=== PATIENT | female | born 1965 ===

== ENCOUNTER 2018-04-01 12:54 | Emergency (ER) | payer OTHER ==
[2018-04-01] MEDS ORDERED: ALBUTEROL/IPRATROPIUM 1 VIAL SOL ONE (13:14)
[2018-04-01 13:19] VITALS: TEMP 98.7
[2018-04-01 13:27] LABS: BASOPHILS % (AUTO) 0 % (0-3); EOSINOPHILS % (AUTO) 0 % (0-9); HEMATOCRIT 37 % (35-47); HEMOGLOBIN 12.7 gm/dl (12.0-15.5); LYMPHOCYTES % (AUTO) 8.27 % (10-50); MEAN CORPUSCULAR HEMOGLOBIN 27.3 pg (27.0-32.0); MONOCYTES % (AUTO) 4.6 % (0-12); NEUTROPHILS % (AUTO) 86.9 % (37-80)
[2018-04-01 13:31] LABS: MEAN CORPUSCULAR VOLUME 80 fL (81-99)
[2018-04-01 13:32] LABS: LACTIC ACID 1.2 mMol/L (0.0-2.0)
[2018-04-01] MEDS ORDERED: ALBUTEROL/IPRATROPIUM 1 VIAL SOL INH ONE (13:37)
[2018-04-01 13:38] VITALS: RESP 20
[2018-04-01 13:39] LABS: CALCIUM 8.5 mg/dl (8.5-10.1); CARBON DIOXIDE 26.2 mEq/L (21-32); CREATININE 0.92 mg/dl (0.60-1.00); POTASSIUM 3.4 mMol/L (3.5-5.1)
[2018-04-01] MEDS ORDERED: SOLUMEDROL 125 MG/2 ML 125 MG/2 ML PDS IM ONE (14:41)
[2018-04-01] MEDS ORDERED: POTASSIUM CHLORIDE 10 MEQ TER PO ONE (14:42)
[2018-04-01] MEDS ORDERED: SOLUMEDROL 125 MG/2 ML 125 MG/2 ML PDS ONE (14:57)
[2018-04-01] MEDS ORDERED: POTASSIUM CHLORIDE 10 MEQ TER ONE (14:57)
[2018-04-01] MEDS ORDERED: LEVOFLOXACIN 500 MG TAB PO ONE (15:21)
[2018-04-01] MEDS ORDERED: LEVOFLOXACIN 500 MG TAB ONE (15:21)
[2018-04-01 16:09] VITALS: BP 153/97; PULSE 74; O2SAT 94
== END 2018-04-01 15:45 | disposition home or self-care (01) ==
LOC: ED 12:54
DX: J20.9 Acute bronchitis, unspecified (principal); I10 Essential (primary) hypertension; R06.02 Shortness of breath; R00.0 Tachycardia, unspecified
CPT/HCPCS: 36415; 71046; 71260; 80048; 85025; 96372; 99284; J2930; Q9967; A9270-GY

== ENCOUNTER 2018-07-27 16:03 | Emergency (ER) | payer OTHER ==
[2018-07-27 18:22] VITALS: PULSE 81; RESP 20; TEMP 98.1; O2SAT 97
[2018-07-27 18:55] VITALS: BP 100/66
== END 2018-07-27 17:00 | disposition left against medical advice (07) ==
LOC: ED 16:03
DX: Z53.21 Procedure and treatment not carried out due to patient leaving prior to being seen by health care provider (principal)
CPT/HCPCS: 99282

== ENCOUNTER 2018-10-01 09:24 | Emergency (ER) | payer OTHER ==
[2018-10-01] MEDS ORDERED: SODIUM CHLORIDE 0.9% 1000 ML SOL IV SCH (10:00)
[2018-10-01] MEDS ORDERED: ONDANSETRON HCL 4 MG/2 ML SOL IV ONE (10:00)
[2018-10-01 10:13] LABS: HEMATOCRIT 24 % (35-47); HEMOGLOBIN 7.1 gm/dl (12.0-15.5); MEAN CORPUSCULAR HEMOGLOBIN 22.6 pg (27.0-32.0); MEAN CORPUSCULAR HGB CONC 29.7 gm/dl (32.0-36.0)
[2018-10-01] MEDS ORDERED: ONDANSETRON HCL 4 MG/2 ML SOL ONE (10:13)
[2018-10-01 10:19] LABS: MEAN CORPUSCULAR VOLUME 76 fL (81-99)
[2018-10-01 10:27] LABS: ALBUMIN 1.5 gm/dl (3.4-5.0); BILIRUBIN,TOTAL 0.8 mg/dl (0.2-1.0); CALCIUM 8.5 mg/dl (8.5-10.1); CARBON DIOXIDE 20.1 mEq/L (21-32); CREATININE 1.31 mg/dl (0.60-1.00); POTASSIUM 4.1 mMol/L (3.5-5.1); TOTAL PROTEIN 7.7 gm/dl (6.4-8.2)
[2018-10-01 10:36] LABS: BAND NEUTROPHILS % (MANUAL) 2 %; BASOPHILS % (MANUAL) 0 % (0-3); EOSINOPHILS % (MANUAL) 0 % (0-9); LYMPHOCYTES % (MANUAL) 2 % (10-50); MONOCYTES % (MANUAL) 2 % (0-12); NEUTROPHILS % (MANUAL) 94 % (37-80); POIKILOCYTOSIS SLIGHT AMT
[2018-10-01 10:37] LABS: ANISOCYTOSIS S; HYPOCHROMASIA SLIGHT AMT; OVALOCYTES PRESENT; TARGET CELLS PRESENT
[2018-10-01 11:52] LABS: INR 1.25 (0.86-1.12)
[2018-10-01 12:35] LABS: ABO O; ANTIBODY SCREEN Negative; RH TYPE Positive; UNIT TYPE O POSITIVE
[2018-10-01 12:37] LABS: UNIT TYPE O POSITIVE
[2018-10-01 14:37] LABS: APPEARANCE,URINE Slightly Cloudy; BILIRUBIN,URINE NEGATIVE (NEGATIVE); COLOR,URINE Yellow; GLUCOSE, URINE (UA) NEGATIVE (NEGATIVE); KETONES,URINE TRACE (NEGATIVE); LEUKOCYTE ESTERASE ,URINE 1+ (NEGATIVE); NITRATE,URINE POSITIVE (NEGATIVE); OCCULT BLOOD,URINE NEGATIVE (NEG-TRACE)
[2018-10-01 14:54] LABS: BACTERIA 3+ (< 1+); CRYSTALS NEGATIVE (0-3 AVE/HPF); EPITHELIAL CELLS 0-1 (SQUAMOUS); RBC,URINE NEG (0-3AV/HPF)
[2018-10-01 17:02] VITALS: RESP 18
[2018-10-01] MEDS ORDERED: CIPROFLOXACIN HCL 500 MG TAB PO ONE (17:42)
[2018-10-01] MEDS ORDERED: CIPROFLOXACIN HCL 500 MG TAB PO SCH (17:45)
[2018-10-01 18:38] VITALS: BP 117/74; PULSE 104; TEMP 98.2; O2SAT 97
[2018-10-01 20:56] LABS: *RETICULOCYTE COUNT 2.7 % (0.5-2.0)
[2018-10-02 07:11] LABS: *IRON SATURATION % 16 % (15-46)
[2018-10-02 07:14] LABS: *VITAMIN B12 1600 pg/mL (211-911)
[2018-10-02 07:15] LABS: *FERRITIN 1799.8 ng/mL (10.0-291.0); *FOLATE 3.4 ng/mL (2.6-20.0); *RETICULOCYTE# 0.074 10(6)/uL (0.020-0.110)
== END 2018-10-01 19:35 | disposition home or self-care (01) ==
LOC: ED 09:24
DX: D64.9 Anemia, unspecified (principal)
CPT/HCPCS: 36415; 36430; 80053; 81001; 82272; 85007; 85018; 85027; 85610; 85730; 86850; 86900; 86901; 86920; 87077; 87088; 87186; 96365; 96374; 99070; 99284; 99285; J2405; P9016; A9270-GY

== ENCOUNTER 2018-11-05 10:14 | Emergency (ER) | payer OTHER ==
[2018-11-05 10:14] VITALS: O2SAT 97
[2018-11-05 10:27] VITALS: PULSE 90; TEMP 98.3
[2018-11-05] MEDS ORDERED: SODIUM CHLORIDE 0.9% 1000ML 1,000 ML IV SCH (10:30)
[2018-11-05] MEDS ORDERED: LORAZEPAM 2 MG/ML SOL IV ONE (10:36)
[2018-11-05] MEDS ORDERED: LORAZEPAM 2 MG/ML SOL ONE (10:57)
[2018-11-05] MEDS ORDERED: MORPHINE SULFATE 10 MG/ML SOL IV ONE (11:31)
[2018-11-05 12:19] VITALS: BP 64/38; RESP 12
[2018-11-05] MEDS ORDERED: MORPHINE SULFATE 10 MG/ML SOL ONE (13:24)
== END 2018-11-05 14:30 | disposition expired ==
LOC: ED 10:14
DX: C34.90 Malignant neoplasm of unspecified part of unspecified bronchus or lung (principal)
CPT/HCPCS: 96365; 96366; 96374; 96375; 99283; 99285; J2060; J2270